=== PATIENT | male | born 1970 | race Caucasian/White ===

== ENCOUNTER → 2017-06-11 19:23 | Outpatient (CLI) | payer MEDICARE ==
[~2017-06-11 19:23] MED LIST: TYLENOL W/CODEI1 TAB PO
== END | disposition home or self-care (01) ==
LOC: D.SLEEP 08:00
DX: G47.33 Obstructive sleep apnea (adult) (pediatric) (principal); R00.1 Bradycardia, unspecified

== ENCOUNTER 2017-06-28 10:22 | Outpatient (CLI) | payer MEDICARE ==
--- NOTE | ~2017-06-28 | HEMODYNAMI ---
PATIENT:ANITA VACA JR MEDICAL RECORD: [id number] : 72 LOCATION:D.CAT ADMISSION DATE: 06/28/17 Generatedon:06/28/201713:42 Patient name: ANITA VACA Patient #: [id number] SSN: : 1970 Date of study: 06/28/2017 Page: Of Hemodynamic Procedure Report Patient Data Patient Demographics Procedure consent was obtained First Name: ANITA Gender: Male Last Name: LIO Suffix: Jr Calderon Initial: Isabelle : 1970 Patient #: [id number] Age: 46 year(s) Race: Unknown Additional ID: [id number] Contact details Address: [address] [place] [address] State: [place] City: [place] Zip code: [facility] Past Medical History Allergies: No known allergies Admission Admission Data Admission Date: 06/28/2017 Admission Time: 10:22 Admit Source: Other Height (in.): 69 BSA: 1.88 (m2) Height (cm.): 175.26 BMI: 23.63 (kg/m2) Weight (lbs.): 160 Weight (kg.): 72.57 Procedure Procedure Types Cath Procedure Diagnostic Procedure PPM/ICD PPM Dual Implant Miscellaneous Procedures Moderate Sedation up to 15 minutes Procedure Description Procedure Date Procedure Date: 06/28/2017 Procedure Start Time: 13:02 Procedure End Time: 13:33 Procedure Staff Name Function Eliezer Finnegan MD Performing Physician Flavia Kebede RN Nurse Adrianne Espinoza RT Monitor Papa Martin MD Assisting physician Ernestine Aguilar RT Scrub Procedure Data Cath Procedure Fluoroscopy Diagnostic fluoroscopy Total fluoroscopy Time: 2.4 time: 2.4 min min Diagnostic fluoroscopy Total fluoroscopy dose: 21 dose: 21 mGy mGy Estimated blood loss: 10 ml Procedure Complications No complications Procedure Medications Medication Administration Route Dosage Ancef Irrigation Topical 1 g (1gm/500ml NS) Lidocaine 1% with added to field 20 ml Epi Bupivacaine 0.5% S.Q. 10 ml Versed I.V. 1 mg Fentanyl I.V. 50 mcg Versed I.V. 1 mg Fentanyl I.V. 50 mcg Versed I.V. 0.5 mg Fentanyl I.V. 25 mcg Hemodynamics Rest BSA: 1.88 (m2) O2 Consumption: Estimated: 223.05 (ml/min) O2 Consumption indexed : Estimated:118.64 (ml/min/m) Heart Rate: 64 (bpm) Snapshots Pre Cath Intra NCS Post Cath Vital Signs Time Heart Resp SPO2 etCO2 NIBP (mmHg) Rhythm Pain Sedation Rate (ipm) (%) (mmHg) Status Level (bpm) 12:47:32 66 15 98 0 139/78(108) NSR 0 (11) 10(A) , No pain 12:51:50 63 16 99 0 130/72(103) NSR 0 (11) 10(A) , No pain 12:56:09 75 14 100 0 137/81(118) NSR 0 (11) 10(A) , No pain 13:00:24 64 15 96 0 125/70(108) NSR 0 (11) 10(A) , No pain 13:04:40 77 14 94 0 129/75(104) NSR 0 (11) 10(A) , No pain 13:09:01 135 17 97 0 132/72(101) NSR 0 (11) 10(A) , No pain 13:13:17 85 15 96 0 138/69(101) NSR 0 (11) 10(A) , No pain 13:17:33 100 15 95 0 128/66(99) NSR 0 (11) 10(A) , No pain 13:21:47 76 13 95 0 126/72(93) NSR 0 (11) 10(A) , No pain 13:26:01 78 13 95 0 124/69(102) NSR 0 (11) 10(A) , No pain 13:30:17 73 16 96 0 119/65(85) NSR 0 (11) 10(A) , No pain Medications Time Medication Route Dose Verified Delivered Reason Notes Effectiv eness by by 12:46:05 Ancef Topical 1 g Eliezer Buffie used for Irrigation [facility] booth cleaner (1gm/500ml NS) 12:46:14 Lidocaine added 20 ml Eliezer Eliezer for local 1% with Epi to [facility] anesthetic field MD GRANGER 12:46:24 Bupivacaine S.Q. 10 ml Eliezer Martins for local 0.5% [facility] John anesthetic MD GRANGER 13:02:27 Versed I.V. 1 mg Eliezer Alejandro for [facility] Kebede RN sedation 13:02:34 Fentanyl I.V. 50 Eliezer Alejandro for mcg [facility] Kebede RN sedation 13:07:45 Versed I.V. 1 mg Eliezer Alejandro for [facility] Kebede RN sedation 13:07:49 Fentanyl I.V. 50 Eliezer Alejandro for mcg [facility] Kebede RN sedation 13:12:54 Versed I.V. 0.5 Eliezer Alejandro for mg [place] Yandy RN sedation 13:12:59 Fentanyl I.V. 25 [facility] Procedure Log Time Note 12:30:54 Patient Height : 69 inches 12:31:00 Patient Weight : 160 lbs 12:31:00 Admit Source: Other 12:31:42 Use device set Pacemaker Set 12:31:57 Diagnostic Cath status Elective 12:31:59 Adrianne FAROOQ(R) sent for patient. Start room use. 12:32:02 Time tracking: Regular hours 12:46:05 Ancef Irrigation (1gm/500ml NS) 1 g Topical was administered by Flavia Kebede RN; used for procedure; 12:46:14 Lidocaine 1% with Epi 20 ml added to field was administered by Eliezer Finnegan MD; for local anesthetic; 12:46:24 Bupivacaine 0.5% 10 ml S.Q. was administered by Eliezer Finnegan MD; for local anesthetic; 12:46:27 Vital chart was started 12:51:31 Plan of Care:Hemodynamics will remain stable., Cardiac rhythm will remain stable., Comfort level will be maintained., Respiratory function will remain adequate., Patient/ family verbilizes understanding of procedure., Procedure tolerated without complication., Recovers from procedure without complications.. 12:51:39 Patient received from Pre/Post Procedure Room to CCL 3 Alert and oriented. Tansferred to table in Supine position. 12:51:40 Warm blankets applied, and jamar hugger turned on for patient comfort. 12:51:46 Correct patient and procedure confirmed by team. 12:51:49 Signed procedure consent form obtained from patient. 12:51:50 ECG and BP/O2 sat monitors applied to patient. 12:51:51 Baseline sample Acquired. 12:51:57 Rhythm: sinus rhythm 12:52:01 Full Disclosure recording started 12:52:22 H&P Date Dictated: 06/26/2017 Within 30 days and on chart.. 12:52:24 Pre-procedure instructions explained to patient. 12:52:25 Family in waiting room. 12:52:27 Patient NPO since Midnight. 12:52:37 Patient allergic to No known allergies 12:52:41 Is the patient allergic to Iodine/contrast media? No. 12:52:44 Was the patient premedicated? No 12:52:47 Is patient on blood thinner?No 12:52:50 Patient diabetic? No. 12:52:54 Snore? No 12:52:55 Sleep apnea? No 12:53:05 Patient pain scale 0/10 ?. 12:53:13 IV patent on arrival in left hand with 0.9% NaCl at [facility]. 12:53:28 Lab results completed and on chart. 12:53:37 Left chest area was prepped with chlora-prep and draped in sterile fashion 12:53:38 Alarms reviewed by R. N. 12:53:39 Sharps counted by scrub and verified by R.N. 12:53:40 Physician paged 13:00:23 Physician arrived 13:00:23 --------ALL STOP TIME OUT------ 13:00:25 Final Timeout: patient, procedure, and site verified with staff and physician. All members of the team are in agreement. 13:00:29 Left chest site verified by team. 13:00:34 Sedation plan: IV Moderate Sedation Versed, Fentanyl 13:02:27 Versed 1 mg I.V. was administered by Flavia Kebede RN; for sedation; 13:02:34 Fentanyl 50 mcg I.V. was administered by Flavia Kebede RN; for sedation; 13:02:55 Procedure started. 13:03:39 Medtronic chain sales representative Marilee present for procedure. 13:03:44 Grounding pad site Left thigh. 13:03:47 Grounding pad site free from injury. 13:04:33 Lidocaine 2% to left subclavicular area by Papa Martin MD. 13:04:37 Incision made to left subclavicular area. 13:07:45 Versed 1 mg I.V. was administered by Flavia Kebede RN; for sedation; 13:07:49 Fentanyl 50 mcg I.V. was administered by Flavia Kebede RN; for sedation; 13:09:11 Generator pocket made/opened. 13:09:14 Cautery Tip Stock Taker opened to sterile field. 13:09:17 Cautery Pushbutton Pencil opened to sterile field. 13:09:20 Immobilizer Sling Medium opened to sterile field. 13:09:26 5.0 Monocryl PS2 [id number] opened to sterile field. 13:09:27 3.0 Vicryl Single Pack [id number] opened to sterile field. 13:11:07 Medtronic Adapta PPM Dual Generator [id number] opened to sterile field. 13:11:07 Medtronic 4574-45 PPM Lead opened to sterile field. 13:11:08 Medtronic 4074-52 PPM Lead opened to sterile field. 13:12:54 Versed 0.5 mg I.V. was administered by Flavia Kebede RN; for sedation; 13:12:59 Fentanyl 25 mcg I.V. was administered by Flavia Kebede RN; for sedation; 13:15:10 Left subclavian vein accessed with 7Fr Peel Away Sheath. 13:15:15 Ventricular lead inserted and advanced. 13:15:22 Peel-a-way sheath was split and removed. 13:15:33 Ventricular lead tested. 13:16:06 Left subclavian vein accessed with 7Fr Peel Away Sheath. 13:16:09 Atrial lead inserted and advanced. 13:16:11 Peel-a-way sheath was split and removed. 13:16:15 Atrial lead tested. 13:18:14 PPM Dual was attached to lead(s) and inserted into pocket. 13:18:19 Device pocket was irrigated with Ancef. 13:18:51 Ventricular lead attachment was completed with 2-0 silk. 13:18:54 Atrial lead attachment was completed with 2-0 silk. 13:19:22 Generator was sutured in place with 2-0 silk. 13:19:37 Subcutaneous closure was completed with 3-0 vicryl. 13:21:50 Skin closure was completed with 5-0 monocryl. 13:25:26 Parameters-- Generator: Mode: DDDR. Lower Rate: 60bpm. Upper Rate: 130bpm. 13:26:21 Parameters--Ventricular P/R Wave: 16.4mV. Current: .6mA; Threshold: 1.0V; Impedence: 1793OHMS. 13:26:50 Parameters--Atrial P/R Wave: 2.9mV. Current: .6mA; Threshold: .5V; Impedence: 639OHMS. 13:27:56 Lt Chest incision was dressed with Mepilex dressing. 13:30:28 Procedure ended.(Physican Out) 13:30:39 Fluoroscopy time 02.40 minutes. 13:30:45 Fluoroscopy dose: 21 mGy 13:30:45 Flurop Dose total: 21 13:30:48 Sharps counted by scrub and verified by R.N. 13:30:54 Insertion/operative site no bleeding no hematoma. 13:31:06 Post left subclavian vein:stable 13:31:07 Post Procedure Pulses reassessed and unchanged 13:31:12 Post-procedure physical assessment completed. ASA score P 2 - A patient with mild systemic disease as per Eliezer Finnegan MD. 13:31:20 Post procedure rhythm: paced 13:31:24 Estimated blood loss: 10 ml 13:31:26 Post procedure instruction explained to patient.Patient verbalizes understanding. 13:31:41 Procedure and supply charges have been captured, reviewed, submitted and are correct. 13:32:26 Procedure Complication : No complications 13:32:28 Vital chart was stopped 13:32:29 See physician's report for complete and final results. 13:32:40 Report given to Med II. 13:32:59 Patient transfered to PCU with Bed. 13:33:02 Procedure ended. 13:33:02 Full Disclosure recording stopped 13:33:05 End room use (Document Last) Device Usage Item Name Manufacture Quantity Catalog Hospital Part Current Minimal Lo t# / Number Charge Number Stock Stock Serial# Code Cautery Tip Microtek 1 [id number] [id number] 939132 [id number] 5 [employer]. Cautery Microtek 1 [id number] [id number] [id number] 5 [employer] Pencil Immobilizer Cardinal 1 79-23201 733429 658865 952583 5 Sling [employer] Medium 5.0 Ethicon 1 Y495G 770681 993026 259711 5 Monocryl PS2 Y495G 3.0 Vicryl Ethicon 1 [id number] 183094 985632 674456 5 Single Pack [id number] Medtronic Medtronic 1 ADDR01 [id number] [id number] 5 Adapta PPM NW [id number] Dual EX P.3 Generator /2 04/21 ADDR01 Medtronic Medtronic 1 4574-45 466262 255233 5 4574-45 PPM BB [id number] Lead EX P. 02/23/19 Medtronic Medtronic 1 4074-52 892978 149256 5 4074-52 PPM BB [id number] Lead EX P .04/09/2019 Signature Audit [place] Stage Time Signature Unsigned Intra-Procedure 06/28/2017 Adrianne Espinoza 1:42:08 PM RT(R) Signatures Monitor : Adrianne Espinoza Signature : RT Date : Time : [place] [id number] [place], [place] [id number]
[2017-06-28 10:53] VITALS: BP 131/75; BMI 22.8
[2017-06-28 11:01] LABS: HEMATOCRIT 42.2 % (42.0-54.0); HEMOGLOBIN 14.4 g/dL (13.5-17.5); MCH 28.8 pg (26.0-34.0); MCHC 34.1 g/dL (31.0-37.0); MCV 84.4 fL (80.0-100.0); MEAN PLATELET VOLUME 10.5 fL (7.4-10.4); RDW 12.9 % (11.5-14.5)
[2017-06-28 11:14] LABS: APTT 29.8 SECONDS (22.8-39.4); INR 0.98 (0.85-1.17); PROTIME 12.8 SECONDS (11.6-15.0)
[2017-06-28 11:19] LABS: CALC OSMOLALITY 280 mosm/kg (275-300); CALCIUM 9.2 mg/dL (8.5-10.1); CARBON DIOXIDE 28.6 mmol/L (21.0-32.0); CHLORIDE - SERUM 103 mmol/L (98-107); GLUCOSE 91 mg/dL (74-106); POTASSIUM - SERUM 3.9 mmol/L (3.5-5.1); SODIUM 141 mmol/L (136-145); UREA NITROGEN 13 mg/dL (7-18); eGFR NON AFRICAN AMERICAN 86 mL/min (90-120)
--- NOTE | 2017-06-28 14:07 | NUR ---
PT TO ROOM ALERT AND ORIENTED VS ARE WNL. LEFT CHEST DSNG NOTED, CDI. LEFT ARM IN SLING. AND FAMILY AT BEDSIDE.
[2017-06-28 14:28] VITALS: BP 128/68; BMI 22.5
--- NOTE | 2017-06-28 14:43 | NUR ---
PT RESTING QUIETLY IN BED WITH FAMILY AND SPOUSE AT BEDSIDE. VSS AND BEING MONITERED [id number] PER POST OP PROCEDURE. TELEMETRY ORDERED AND BEING APPLIED AND WILL CONTINUE TO MONITER. PERIPHERAL PULSES INTACT, L.CHEST DRSG CDI NO S/S OF BLEEDING OR SWELLING NOTED. PT DENIES ANY PAIN OR CURRENT NEEDS. WILL CTM.
--- NOTE | 2017-06-28 17:19 | NUR ---
VSS STILL AND BEING MONITERED. PT SITTING UP IN BED READY TO EAT DINNER. L.CHEST DRSG CDI NO S/S OF SWELLING OR BLEEDING NOTED. PT RUNNING SR @74 PER [employer]. PT DENIES ANY CURRENT PAIN OR NEEDS. WILL CPOC.
--- NOTE | 2017-06-28 20:16 | NUR ---
RESUMED CARE OF PT, LYING IN BED RESPIRATIONS EVEN AND UNLABORED ON ROOM AIR. 77 SR ON TELEMETRY. LEFT FOREARM INFUSING NS @ 50. LEFT CHEST INCISION WNL AND LEFT ARM IN SLING. NO NEEDS AT THIS TIME, CALL LIGHT IN REACH. WILL CONTINUE TO MONITOR. SEE NURSE ASSESSMENT.
[2017-06-28 20:24] VITALS: BP 138/76
[2017-06-29 00:12] VITALS: BP 131/59
--- NOTE | 2017-06-29 02:30 | NUR ---
LYING IN BED WITH EYES CLOSED, CALL LIGHT IN REACH. WILL CONTINUE TO MONITOR.
[2017-06-29 05:17] VITALS: BP 118/66
--- NOTE | 2017-06-29 06:42 | NUR ---
NO CHANGES FROM PREVIOUS ASSESSMENT, CALL LIGHT IN REACH. WILL CONTINUE TO MONITOR.
[2017-06-29 08:22] VITALS: BP 120/73
--- NOTE | 2017-06-29 12:19 | NUR ---
RHONA NEEDS OR C/O AT THIS TIME. CALL LIGHT IN REACH. WILL CONT. PLAN OF CARE.
[2017-06-29] MEDS ORDERED: TYLENOL W/CODEI1 TAB PO (12:36)
[2017-06-29 12:39] VITALS: BP 135/81
--- NOTE | 2017-06-29 14:35 | NUR ---
PATIENT WAS DISCHARGED AT 1:05. DISCHARGE TEACHING DONE PER HOSPITAL PROTOCAL.
--- NOTE | 2017-07-09 13:13 | OP ---
PATIENT NAME: ANITA VACA JR MEDICAL RECORD: [id number] :72 LOCATION:D.CAT ADMISSION DATE: SURGEON: HANNAH YING MD DATE OF OPERATION: 06/28/2017 PROCEDURE: Lead portion of permanent pacemaker placement. INDICATION: Sinus arrest pauses greater than 4 seconds. SURGEON: Papa Martin MD. DESCRIPTION OF PROCEDURE: After the left subclavian was cannulated via modified Seldinger technique via Dr. Martin, first under fluoroscopic guidance, I placed the RV lead in RV apex without difficulty. After adequate R waves and thresholds were obtained, again, under fluoroscopic guidance, I placed RV lead in RV apex without difficulty. After adequate thresholds and P waves were obtained, the lead was attached to appropriate poles of the generator and the pocket was closed via Dr. Martin. IMPRESSION: Successful lead portion of permanent pacemaker placement. Her [place]. COMPLICATIONS: None. DISPOSITION: To the floor, stable. ESTIMATED BLOOD LOSS: Minimal. TRANSINT:[id number] Voice Confirmation ID: [id number] DOCUMENT ID: [id number] HANNAH YING MD at 1313 CC: [id number] DICTATION DATE: 06/28/17 1324 WIG STYLIST: 06/28/17 1357 DEP CLI 06/29/17 [place] [id number] [place] [address]
--- NOTE | 2017-07-10 11:14 | OP ---
PATIENT NAME: ANITA VACA JR MEDICAL RECORD: [id number] :72 LOCATION:D.CAT ADMISSION DATE: SURGEON: APARNA ERNST MD DATE OF OPERATION: 06/28/2017 PREOPERATIVE DIAGNOSIS: Sick sinus syndrome. POSTOPERATIVE DIAGNOSIS: Sick sinus syndrome. PROCEDURE: 1. Left subclavian vein dual lead pacemaker placement. 2. Fluoroscopic interpretation. SURGEON: Aparna Ernst MD COSURGEON: Eliezer Finnegan MD REPORT OF PROCEDURE: The patient's left chest was prepped and draped in sterile fashion, 30 mL of 1% lidocaine was infused into the surrounding tissues. A transverse incision was made in the left upper lateral chest. A subcutaneous pouch was made overlying the pectoral fascia. We then accessed the left subclavian vein with 2 separate sticks and guidewires were advanced with ease. Fluoro was used to note that the wires were in good position in the venous system. Then, 7-[place] dilator sheaths were placed over the wire and the wire and dilators were removed. The leads were advanced through the sheath. At this point, Dr. Finnegan came in and positioned the leads in the heart. Once these were tested and noted to be working appropriately, then the sheaths were removed. The leads were then sutured into place with 0 Ti-Cron and affixed to the pacemaker. The pacemaker and leads were placed in subcutaneous pouch and sutured down with an 0 Ti-cron. We irrigated out the wound with antibiotic solution and then closed the subcutaneous tissues with interrupted 3-0 Vicryls. The skin was closed with running subcutaneous 5-0 Monocryl and dressed appropriately. COMPLICATIONS: None. CONDITION: Stable. ANESTHESIA: Local MAC. BLOOD LOSS: Minimal. TRANSINT:[id number] Voice Confirmation ID: [id number] DOCUMENT ID: [id number] APARNA ERNST MD at 1114 CC: [id number] DICTATION DATE: 06/28/17 1335 ANALYSIS MANAGER: 06/28/17 1345 DEP CLI 06/29/17 [place] [id number] [place] [address]
== END 2017-06-29 14:46 | disposition home or self-care (01) ==
LOC: D.CATH 10:22 → D.M2 13:56 → D.CATH 06-29 14:46
PROVIDERS: Internal Medicine Cardiovascular Disease
DX: I49.5 Sick sinus syndrome (principal); G47.33 Obstructive sleep apnea (adult) (pediatric); Z01.812 Encounter for preprocedural laboratory examination

== ENCOUNTER → 2017-11-19 19:07 | Outpatient (CLI) | payer MEDICARE | END | disposition home or self-care (01) | LOC: D.SLEEP 19:07 | DX: G47.30 Sleep apnea, unspecified (principal) ==

== ENCOUNTER → 2018-08-20 08:57 | Outpatient (CLI) | payer MEDICARE | END | disposition home or self-care (01) | LOC: D.HCCARDIO 08:57 | DX: Z03.89 Encounter for observation for other suspected diseases and conditions ruled out (principal) ==